=== PATIENT | female | born 1955 | race Caucasian/White ===

== ENCOUNTER → 2016-07-24 | Outpatient (CLI) | payer BC, OTHER ==
--- NOTE | 2016-07-24 13:47 | MAM ---
EXAM DESCRIPTION: MAMMO BREAST SCREENING BILATERAL CAD, images were reviewed with CAD technology, R2 computer-aided detection. CLINICAL HISTORY: [facility]. COMPARISON: 2013. FINDINGS: Routine views are obtained. Bilateral subpectoral implants. Increased mammographic density with scattered glandular contour. No dominant mass, architectural distortion or clustered microcalcification.. IMPRESSION: Benign exam BIRAD CATEGORY: 2 BENIGN RECOMMENDATIONS: FOLLOW-UP: Routine screening mammogram in one year. According to the [employer], yearly mammograms are recommended starting at age 40 and continuing as long as a woman is in good health. Any breast change noted on a breast self-exam should be reported promptly to the patient's healthcare provider. Breast MRI is recommended for women with an approximately 20-25% or greater lifetime risk of breast cancer, including women with a strong family history of breast or ovarian cancer and women who have been treated for Hodgkin's disease. Electronically signed by: Kasia Painter 07/24/2016 13:46
== END | disposition home or self-care (01) ==
LOC: MAMMO 08:52
PROVIDERS: ATTEND Family Medicine
DX: Z12.31 Encounter for screening mammogram for malignant neoplasm of breast (principal)

== ENCOUNTER → 2016-11-17 | Outpatient (CLI) | payer OTHER, SELFPAY ==
--- NOTE | 2016-11-20 15:01 | MRI ---
EXAM DESCRIPTION: Cervical Spine CLINICAL HISTORY: LOW BACK PAIN neck pain with arm and hand numbness on the left side. COMPARISON: None Available. TECHNIQUE: MRI of the cervical spine is performed according to our usual protocol. FINDINGS: Reversal of the normal cervical lordosis centered at C4-5 is present with multilevel disc space narrowing at this level and C5-6 and moderate disc desiccation. No cord or intradural or intramedullary abnormalities are noted. The foramen magnum and C1-2 level is normal. The paraspinous region and about marrow signal appearance is within the limits of normal. Modest narrowing of the thecal sac at C4-5 and to a lesser extent C5-6 is apparent. Patient had may have small hemangiomas involving the six and C7 vertebral bodies. C2-3: Normal disc contour with adequate canal and left lateral recess and foramina with normal appearance on the right with minimal foraminal narrowing from uncinate process hypertrophy. This likely is unrelated to the patient's left upper extremity symptoms C3-4: Annular bulge with adequate canal and lateral recesses with moderate bilateral C3-4 foraminal narrowing from facet disease and uncinate process hypertrophy C4-5: Broad-based annular bulge with superimposed central and left parasagittal disc protrusion abutting the cervical cord with left-sided cord compression and flattening. Bilateral foraminal narrowing from facet and uncinate process disease is noted C5-6: Degenerative disc narrowing with broad-based annular bulge with thecal sac in the lower range of normal with mild narrowing of both neural foramina C6-7: the disc is well hydrated. There is no loss of height. There is no bulging. The facets are unremarkable with no significant hypertrophy. There is no stenosis or impingement. C7-T1: the disc is well hydrated. There is no loss of height. There is no bulging. The facets are unremarkable with no significant hypertrophy. There is no stenosis or impingement. IMPRESSION: 1. Number bulge with additional central and left parasagittal disc protrusion at C4-5 with modest compression of the left side of the cord and bilateral foraminal narrowing, likely accounting for the left upper extremity radiculopathy 2. Annular bulge at C3-4 and degenerative disc narrowing and annular bulge at C5-6 adequate canal and bilateral foraminal narrowing from facet and uncinate process disease 3. No additional left-sided abnormalities noted. Electronically signed by: Cruz Martinez MD 11/20/2016 3:01 PM CDT
--- NOTE | 2016-11-20 15:56 | MRI ---
EXAM DESCRIPTION: Lumbar Spine w/o Contrast CLINICAL HISTORY: LOW BACK PAIN right lower extremity pain with leg numbness COMPARISON: None Available. TECHNIQUE: MRI of the lumbar spine is performed according to our usual protocol with axial and sagittal multi sequence imaging. FINDINGS: Scoliosis of the spine convex to the right in the upper lumbar spine and to the left in the lower lumbar spine with significant endplate edematous changes and marrow signal changes on the left at the L2-3 level. Diffuse disc desiccation is present with predominant left-sided degenerative changes and narrowing at L2-3 with edema and right-sided changes at L4-5 and to a lesser extent at L5-S1. The retroperitoneal and paraspinous regions are unremarkable in the conus is positioned at the L1-2 level without intradural or intramedullary abnormalities. Mild annular prominence at T11-12 and a normal disc contour at T12-L1 and L1-2 are noted. L1-2: the disc is well hydrated. There is no loss of height. There is no bulging. The facets are unremarkable with no significant hypertrophy. There is no stenosis or impingement. L2-3: Disc desiccation and degenerative change with extensive edematous changes predominantly in the midline into the left of midline at this level with thecal sac lower limits of normal and marked left L2 foraminal narrowing from disc bulge and scoliosis and left-sided facet arthropathy L3-4: Mild annular bulge with very slight right-sided prominence with central canal and actually slightly worse left than right foraminal narrowing secondary to facet disease. L4-5: Annular bulge with right worse than left degenerative disc narrowing with severe facet arthropathy and marked ligamentum flavum hypertrophy and severe central canal stenosis with right much worse than left foraminal stenosis on this basis. This likely accounts for the patient's right-sided symptoms L5-S1: Moderately degenerative disc with adequate central canal with bilateral severe foraminal narrowing but asymmetric focal small but significant left-sided disc protrusion without left-sided neural compression. IMPRESSION: 1. Markedly abnormal examination with S-shaped scoliosis of the spine with marked endplate and edematous changes on the left at L2-3 and on the right at L4-5 and L5-S1. 2. Severe multifactorial central stenosis at L4-5 with right much worse than left foraminal and lateral recess stenosis. 3. Focal small but significant left L5-S1 disc protrusion with left-sided thecal sac and lateral recess compression and foraminal stenosis. 4. Predominant left foraminal narrowing at L2-3 and L3-4, likely not accounting for the patient's right-sided symptoms. Electronically signed by: Cruz Martinez MD 11/20/2016 3:56 PM CDT
--- NOTE | 2016-11-20 16:23 | MRI ---
EXAM DESCRIPTION: Thoracic Spine w/o Contrast CLINICAL HISTORY: LOW BACK PAIN COMPARISON: None Available. TECHNIQUE: MRI thoracic is performed according to our usual protocol. FINDINGS: Moderate kyphosis of the dorsal spine is present with no significant compromise of the thoracic spinal canal at any level with mild endplate edematous changes in the mid thoracic spine but without evidence of acute compression deformity or severe deformity from old compression deformity in the spine. No intradural or intramedullary abnormality is noted. Moderate levoscoliosis of the thoracic spine is present. No paraspinous mass or fluid collection is noted. A pattern to suggest metastatic disease is not evident. A mild right-sided disc protrusion at T5-6 is suggested. IMPRESSION: 1. Moderate kyphosis and moderate levoscoliosis of the mid dorsal spine with mild endplate degenerative edematous signal evident proximally the T6-7 level without compromise of the thecal sac posteriorly. Minimal annular prominence is suggested at T5-6 particularly on the right. 2. Acute compression deformity or metastatic disease or significant compromise of the spinal canal is not apparent. Electronically signed by: Cruz Martinez MD 11/20/2016 4:23 PM CDT
== END ==
LOC: MRI 12:39
PROVIDERS: ATTEND Nurse Practitioner Family
DX: M54.5 Low back pain (principal); M54.6 Pain in thoracic spine; M48.06 Spinal stenosis, lumbar region; M50.821 Other cervical disc disorders at C4-C5 level

== ENCOUNTER → 2017-11-21 | Outpatient (CLI) | payer BC ==
--- NOTE | 2017-11-23 15:34 | MAM ---
EXAM DESCRIPTION: 3D Screening BILATERAL : Digital Mammography. CLINICAL HISTORY: 62 years Female SCREENING . Mother with breast cancer. No complaints. Childbirth. Premenopausal. Currently on HRT. Bilateral breast augmentation. COMPARISON: 2-D digital screening bilateral study 07/24/2016.. No prior reports available. Reports from prior examinations also reviewed. Report from prior examination also reviewed. TECHNIQUE: Bilateral CC and MLO projection full-field images, with [employer]plant Displacement 3-D tomosynthesis digital mammographic technique. CAD not utilized. Bilateral 2-D digital full-field images, MLO and CC projections, non-displaced, with CAD. FINDINGS: The breast parenchymal density pattern is: Heterogeneously dense breast tissue, which may obscure small masses. No skin thickening or nipple retraction. Bilateral solitary microcalcifications. Bilateral retromuscular saline implants. Implant capsules appear intact where seen. No focal, stellate mass or density, focal asymmetry , and no suspicious microcalcifications bilaterally. Stable mammograms compared to prior study, taking into account differences in mammographic technique IMPRESSION: BI-RADS CATEGORY: 2 - BENIGN FINDINGS. FOLLOW UP: Routine digital bilateral screening, one year interval from November 2017. Written communication explaining the IMPRESSION and follow-up, will be mailed to the patient and referring health care provider. According to the [employer], yearly mammograms are recommended starting at age 40 and continuing as long as a woman is in good health. Any breast change noted on a breast self-exam should be reported promptly to the patient's healthcare provider. Breast MRI is recommended for women with an approximately 20-25% or greater lifetime risk of breast cancer, including women with a strong family history of breast or ovarian cancer and women who have been treated for Hodgkin's disease. A negative mammographic report should not delay tissue diagnosis in patients with significant clinical history or physical findings. Extremely dense breast tissue limits the sensitivity of digital mammography. Electronically signed by: Steven Evans MD 11/23/2017 3:33 PM CDT
== END ==
LOC: MAMMO 14:30
PROVIDERS: ATTEND Family Medicine
DX: Z12.31 Encounter for screening mammogram for malignant neoplasm of breast (principal)

== ENCOUNTER → 2017-12-11 | Outpatient (CLI) | payer BC | LOC: GMAM 15:20 | PROVIDERS: ATTEND Family Medicine | DX: E03.9 Hypothyroidism, unspecified (principal); M79.642 Pain in left hand ==

== ENCOUNTER → 2017-12-18 | Outpatient (CLI) | payer BC ==
--- NOTE | 2017-12-18 16:52 | US ---
Exam: Bilateral lower extremity arterial Doppler sonogram CLINICAL HISTORY: Symptoms TECHNIQUE: Doppler sonographic evaluation of the bilateral lower extremities was performed. FINDINGS: Right Submitted sonographic images reveal normal widely patent vessels with no significant stenosis. Normal flow velocities with multiphasic flow throughout the right lower extremity. The following peak systolic flow flow velocity measurements were obtained: Common femoral artery velocity equals 158 centimeters per second , triphasic. Superficial femoral artery velocity equals 131 to 147 centimeters per second , biphasic. Popliteal artery velocity equals 63 centimeters per second , biphasic. Peroneal artery velocity equals 42 centimeters per second, biphasic. Posterior tibial artery velocity equals 66 centimeters per second , biphasic. Dorsalis pedis artery velocity equals 47 centimeters per second , biphasic. Left Submitted sonographic images reveal normal widely patent left lower extremity arteries with multiphasic flow and no significant stenosis. The following peak systolic flow flow velocity measurements were obtained: Common femoral artery velocity equals 1:15 centimeters per second , triphasic. Superficial femoral artery velocity equals 109 -152 centimeters per second , biphasic. Popliteal artery velocity equals 57 centimeters per second , biphasic. Peroneal artery velocity equals 43 centimeters per second , biphasic. Posterior tibial artery velocity equals 62 centimeters per second , biphasic. Dorsalis pedis artery velocity equals 59 centimeters per second , biphasic. IMPRESSION: Normal multiphasic flow in the lower extremity arteries with no significant stenosis. Electronically signed by: Gene Gottlieb MD 12/18/2017 4:51 PM CDT
== END ==
LOC: US 12:50
PROVIDERS: ATTEND Family Medicine
DX: M72.2 Plantar fascial fibromatosis (principal)

== ENCOUNTER → 2018-01-04 | Outpatient (CLI) | payer BC, OTHER ==
--- NOTE | 2018-01-06 18:25 | CT ---
Procedure: CT LUNG SCREENING Exam Date: 07/07/2017. Ordering Provider: Wally Nuñez Clinical Indication: PERSONAL HX OF TOBACCO USE This patient meets eligibility criteria for low-dose CT lung cancer screening. Comparison: CT scan of the chest with contrast 07/31/2012. Technique: Using a multislice scanner, sequential axial imaging, 2.5 mm thickness and separation, was obtained in the thorax from the level of the thoracic inlet through the lung bases without IV contrast. A low dose protocol was utilized. CTDI: 1.76 mGy. 120. kVp. 45 mA. 2D sagittal and coronal 6.0 mm reconstructed images were obtained. This exam was performed according to our departmental dose optimization program which includes use of automated exposure control, adjustment of the mA and/or kV according to patient size and/or use of iterative reconstruction technique. FINDINGS: Lungs and large airways: Dilated centrilobular airspaces more prevalent in the upper lung rivera than the lower lung rivera. Minimal parenchymal scarring anterior left lower lobe. Minimal scarring in the anterior inferior lingula abutting the medial pleura. 7 subpleural nodules are noted in the right upper lobe all less than 4 mm in diameter. 2 appear to be groundglass and the other nodules are solid. 4 are visible on the prior (non-screening) study which was done with 5 mm slice thicknesses. Groundglass nodule subpleural in the apex of the superior segment of the left lower lobe is also stable since the prior study. No pulmonary nodules are seen bilaterally. No masses or infiltrates. Pleura: Apical thickening on the right. No pleural effusion or pneumothorax. Mediastinum and dorothy: No gross soft tissue masses. Limited by screening technique and lack of IV contrast also beam hardening artifact from thoracic spine fusion hardware. Heart and great vessels: Atherosclerotic calcification in the thoracic arch and the proximal left subclavian artery. Chest wall, lower neck, axillae: Beam hardening artifact of the base of the neck from prior, clavicles, ribs, and right humeral head. Bilateral lymph nodes in the axilla. Bilateral saline breast implants. Upper abdomen: No free fluid or free air. Artifact from fusion hardware in the spine. Bones: Multiple levels of spondylosis in the thoracic spine. Anterior cervical disc fusion. Degenerative changes in the left glenohumeral joint. IMPRESSION: Bilateral emphysematous changes in the lungs. Solid and groundglass nodules bilaterally less than 4 mm in diameter. Most are stable since the prior study which was non screening study with thicker slices. No pleural effusion or pneumothorax. No mass or acute infiltrate. Limited visualization of the soft tissues due to screening nature of the examination. Lung RADS category Category 2 - Nodules with a very low likelihood (less than 1%) of becoming a clinically active cancer due to size or lack of growth. Nodules: Solid or part solid nodule(s) less than 6mm, new solid nodule less than 4mm. Ground glass nodule(s) less than 20mm or unchanged or slow growing ground glass nodule 20mm or greater. Follow-up: Continue annual screening with a Low Dose Chest CT in 12 months for re-evaluation. Electronically signed by: Steven Evans MD 01/06/2018 6:24 PM CDT
== END ==
LOC: CT 09:00
PROVIDERS: ATTEND Family Medicine
DX: Z87.891 Personal history of nicotine dependence (principal)

== ENCOUNTER → 2018-08-16 | Outpatient (CLI) | payer BC | LOC: GMAM 14:23 | PROVIDERS: ATTEND Family Medicine | DX: E53.8 Deficiency of other specified B group vitamins (principal); E03.9 Hypothyroidism, unspecified; E55.9 Vitamin D deficiency, unspecified ==

== ENCOUNTER → 2018-08-20 | Outpatient (CLI) | payer BC | LOC: GMAM 18:00 | PROVIDERS: ATTEND Family Medicine | DX: N95.1 Menopausal and female climacteric states (principal) ==

== ENCOUNTER → 2019-02-20 | Outpatient (CLI) | payer BC, OTHER ==
--- NOTE | 2019-02-21 07:29 | CT ---
LOW DOSE CT CHEST WITHOUT CONTRAST LUNG CANCER SCREENING HISTORY: PERSONAL HISTORY OF TOBACCO USE. COMPARISON: January 04, 2018. TECHNIQUE: A topogram was acquired for image localization. Low-dose volumetric CT scan of the chest was acquired without intravenous contrast. Thin section axial, sagittal, and coronal images were reconstructed and reviewed. This protocol meets the ACR Lung-RADS low dose lung cancer screening specifications. This exam was performed according to our departmental dose-optimization program, which includes automated exposure control, adjustment of the mA and/or kV according to patient size and/or use of iterative reconstruction technique. FINDINGS: Pulmonary nodules: No new or suspicious pulmonary nodule identified. The previously described sub-6 mm scattered solid noncalcified pulmonary nodules are stable indicative of a benign etiology given long-term stability. The thyroid gland is unremarkable. Bilateral breast prostheses. No axillary adenopathy. Normal caliber thoracic aorta. No pericardial effusion. Visualized upper abdomen is unremarkable for acute pathology. Small hiatal hernia. No mediastinal adenopathy. No pneumothorax. No pleural effusion. Extensive postsurgical changes in the thoracolumbar spine. No acute or suspicious osseous abnormality. IMPRESSION: Lung-RADS Category 1: Negative. Recommend continuing annual screening with LDCT in 12 months. No incidental findings of clinical significance. IMPORTANT NOTES FOR USE: 1) Negative screen: Does not mean that an individual does not have lung cancer. 2) Size: Nodules should be measured on lung windows and reported as the average diameter rounded to the nearest whole number; for round nodules only a single diameter measurement is necessary. 3) Size thresholds: Apply to nodules at first detection, and that grow and reach a higher size category. 4) Growth: An increase in size of > 1.5 mm. 5) Exam Category: Each exam should be coded 0-4 based on the nodule(s) with the highest degree of suspicion. 6) Exam Modifiers: S and C modifiers may be added to the 0-4 category. S means significant finding. C means known malignancy. 7) Lung Cancer Diagnosis: Once a patient is diagnosed with lung cancer, further management (including additional imaging such as PET/CT) may be performed for purposes of lung cancer staging; this is no longer screening 8) Practice audit definitions: a negative screen is defined as categories 1 and 2; a positive screen is defined as categories 3 and 4 9) Category 4B Management: this is predicated on the probability of malignancy based on patient evaluation, patient preference and risk of malignancy; radiologists are encouraged to use the Carla et al assessment tool when making recommendations 10) Category 4X: nodules with additional imaging findings that increase the suspicion of lung cancer, such as spiculation, GGN that doubles in size in 1 year, enlarged lymph nodes etc 11) Nodules with features of an intrapulmonary lymph node should be managed by mean diameter and the 04 numerical category classification 12) Category 3 and 4A nodules that are unchanged on interval CT should be coded as category 2, and individuals returned to screening in 12 months 13) LDCT: low dose chest CT S modifier: Clinically significant or potentially clinically significant findings (non lung cancer). C modifier: Prior lung cancer. Patient with a prior diagnosis of lung cancer who returns to screening. *Link to Carla Lung Cancer Risk Calculator Upon request from the authors at: [email or web address] Electronically signed by: Regan Steinberg MD 02/21/2019 7:27 AM CDT
== END ==
LOC: CT 10:30
PROVIDERS: ATTEND Family Medicine
DX: Z87.891 Personal history of nicotine dependence (principal)

== ENCOUNTER 2019-03-17 05:04 | Day surgery (SDC) | payer BC ==
[2019-03-17] MEDS ORDERED: TROP 1%/CYCLOPEN 1%/PHENYL 2% DROPS ONE (05:56)
[2019-03-17] MEDS ORDERED: PROPARACAINE 0.5% OPHTH SOL 15 ML BTTL ONE (05:56)
[2019-03-17] MEDS ORDERED: MIDAZOLAM INJ 2 MG/2 ML VIAL ONE (08:29)
[2019-03-17] MEDS ORDERED: LIDOCAINE 1% MPF 2 ML VIAL INJ ONE (08:39)
[2019-03-17] MEDS ORDERED: MOXIFLOXACIN HCL (OPHTH) 1 DROP DROPS RIGHT_EYE ONE ×2 (08:42→08:49)
[2019-03-17] MEDS ORDERED: TOBRAMYCIN SULF 0.3 % OPHT SOL 1 DROP RIGHT_EYE ONE ×2 (08:42→08:49)
[2019-03-17] MEDS ORDERED: DEXAMETHASONE 0.1% OPHTH SOL 1 DROP RIGHT_EYE ONE ×2 (08:42→08:49)
[2019-03-17] MEDS ORDERED: BRIMONIDINE 0.2% OPHTH DROPS RIGHT_EYE ONE ×2 (08:42→08:49)
== END 2019-03-17 09:25 | disposition home or self-care (01) ==
LOC: AMB 05:04
PROVIDERS: ATTEND Ophthalmology
DX: H25.11 Age-related nuclear cataract, right eye (principal); I10 Essential (primary) hypertension; Z79.899 Other long term (current) drug therapy
CPT/HCPCS: 00142; 66984; J2250

== ENCOUNTER → 2020-04-21 | Outpatient (CLI) | payer OTHER | LOC: GMAM 11:51 | PROVIDERS: ATTEND Family Medicine | DX: E53.8 Deficiency of other specified B group vitamins (principal); E03.9 Hypothyroidism, unspecified; E55.9 Vitamin D deficiency, unspecified ==